=== PATIENT | female | born 1940 | race Native Hawaiian/Other Pacific Islander ===

== ENCOUNTER 2016-07-07 14:21 | Inpatient (IN) | payer MEDICARE ==
[~2016-07-07] VITALS: Ht 160 cm; Wt 118.6 kg
[2016-07-07 14:35] VITALS: BP 174/115; TEMP 97.8
[2016-07-07 15:35] LABS: PLATELET COUNT 384 K/uL (152-353)
[2016-07-07 15:48] LABS: POTASSIUM 4.2 mmol/L (3.6-5.2)
[2016-07-07 17:38] VITALS: BP 150/97
[2016-07-07 18:32] VITALS: BP 136/109; TEMP 98.4; Ht 160 cm; Wt 118.6 kg
[2016-07-07 20:00] VITALS: BP 157/84; TEMP 97.7
[2016-07-07 23:57] VITALS: BP 147/84; TEMP 98.1
[2016-07-08 03:09] LABS: PLATELET COUNT 330 K/uL (152-353)
[2016-07-08 03:29] LABS: POTASSIUM 4.4 mmol/L (3.6-5.2); SODIUM 133 mmol/L (136-145)
[2016-07-08 04:00] VITALS: BP 148/86; TEMP 98
[2016-07-08 08:00] VITALS: BP 160/97; TEMP 98.1
--- NOTE | 2016-07-08 08:32 | NUR ---
BS RECHECKED AFTER 10 UNITS PER SPECIAL DELIVERY CLERK. BS 200 AT THIS TIME. PT NPO. WILL MONITOR.
[2016-07-08 08:40] LABS: POTASSIUM 4.4 mmol/L (3.6-5.2); SODIUM 134 mmol/L (136-145)
--- NOTE | 2016-07-08 11:55 | NUR ---
MED LIST OBTAINED FROM [facility] OFFICE. ATTEMPTED TO GO OVER HOME MEDS WITH PT AND GRANDDAUGHTER. PT STATES SHE DOES NOT KNOW NAMES OF HOME MEDS OR WHAT THEY ARE FOR. GRANDDAUGHTER STATES SHE TOOK PT OFF OF SOME MEDS DUE TO "COMMERCIAL SHE SAW" GRANDDAUGHTER STATES SHE DOES NOT KNOW MEDS NAMES AND CAN NOT GO HOME TO OBTAIN MEDS OR LIST. YOSELIN GUSMAN INFORMED.
[2016-07-08 12:00] VITALS: BP 167/98; TEMP 98
[2016-07-08 16:00] VITALS: BP 143/81; TEMP 97.8
[2016-07-08] MEDS ORDERED: NEURONTIN800 MG PO (17:22)
[2016-07-08] MEDS ORDERED: ALAVERT10 M2 PO (17:23)
[2016-07-08] MEDS ORDERED: TRAM50TA PO (17:24)
[2016-07-08] MEDS ORDERED: CELE100C2 PO (17:26)
[2016-07-08] MEDS ORDERED: CLON0.5T36 PO (17:26)
[2016-07-08] MEDS ORDERED: DILTIAZEM HCL360 M1 PO (17:27)
[2016-07-08] MEDS ORDERED: CORRECTOL100 MG PO (17:28)
[2016-07-08] MEDS ORDERED: [UNRECOGNIZED DRUG - OTHER] PO (17:30)
[2016-07-08] MEDS ORDERED: FERROUS SULF325 M1 PO (17:31)
[2016-07-08] MEDS ORDERED: ACETAZOLAMID125 MG PO (17:32)
[2016-07-08] MEDS ORDERED: CITALOPRAM40 MG PO (17:33)
[2016-07-08] MEDS ORDERED: FURO40TA93 PO (17:33)
[2016-07-08] MEDS ORDERED: CARBTAB13 PO (17:34)
[2016-07-08] MEDS ORDERED: UNITH DIRECT175 MCG PO (17:34)
[2016-07-08 20:00] VITALS: BP 137/63; TEMP 98.3
[2016-07-09 01:26] VITALS: BP 139/88; TEMP 98.2
[2016-07-09 04:00] VITALS: BP 158/93; TEMP 97.6
--- NOTE | 2016-07-09 05:10 | NUR ---
07/09/16 2242 BLOOD SUGAR 9 UNITS.CC 07/09/16 0045 BLOOD SUGAR CHECKED 128. SNACK PROVIDED AT [email or web address]
[2016-07-09 08:00] VITALS: BP 148/80; TEMP 98.6
[2016-07-09 12:00] VITALS: BP 153/96; TEMP 97.6
[2016-07-09 12:38] LABS: PLATELET COUNT 311 K/uL (152-353)
[2016-07-09 13:01] LABS: POTASSIUM 4.2 mmol/L (3.6-5.2); SODIUM 138 mmol/L (136-145)
[2016-07-09 16:00] VITALS: BP 157/71; TEMP 98
[2016-07-09 20:00] VITALS: BP 161/104; TEMP 99
[2016-07-10] VITALS: BP 147/87; TEMP 98.3
[2016-07-10 04:00] VITALS: BP 132/74; TEMP 98.1
[2016-07-10 08:00] VITALS: BP 142/79; TEMP 98.4
[2016-07-10 12:00] VITALS: BP 152/95; TEMP 98.2
[2016-07-10 16:00] VITALS: BP 169/79; TEMP 97.8
[2016-07-10 20:00] VITALS: BP 177/91; TEMP 97.6
[2016-07-11] VITALS: BP 169/77; TEMP 98.7
[2016-07-11 04:00] VITALS: BP 141/61; TEMP 98.1
[2016-07-11 08:00] VITALS: BP 146/73; TEMP 98
== END 2016-07-11 15:41 | disposition home or self-care (01) | DRG 389 ==
LOC: ED 14:21 → MED/SURG 17:37
PROVIDERS: Emergency Medicine; ADMIT Family Medicine
DX: K56.69 Other intestinal obstruction (principal); N39.0 Urinary tract infection, site not specified; E11.65 Type 2 diabetes mellitus with hyperglycemia; Z79.4 Long term (current) use of insulin; R11.0 Nausea; R10.84 Generalized abdominal pain; B96.89 Other specified bacterial agents as the cause of diseases classified elsewhere; S00.83XA Contusion of other part of head, initial encounter; I10 Essential (primary) hypertension; G20 Parkinson's disease; I25.2 Old myocardial infarction; Z86.73 Personal history of transient ischemic attack (TIA), and cerebral infarction without residual deficits; E03.8 Other specified hypothyroidism; N18.3 Chronic kidney disease, stage 3 (moderate); J44.9 Chronic obstructive pulmonary disease, unspecified
CPT/HCPCS: 80053; 81000; 82550; 82948; 83735; 84484; 85027; 85610; 87077; 87086; 87088; 87186; 96365; 96366; 96367; 96372; 96374; 96375; 99284; J0744; J1200; J2175; J2550; J2765

== ENCOUNTER 2016-07-22 16:01 | Outpatient (CLI) | payer OTHER ==
[~2016-07-22 16:01] MED LIST: ACETAZOLAMID125 MG PO; ALAVERT10 M2 PO; CARBTAB13 PO; CELE100C2 PO; CITALOPRAM40 MG PO; CLON0.5T36 PO; CORRECTOL100 MG PO; DILTIAZEM HCL360 M1 PO; FERROUS SULF325 M1 PO; FURO40TA93 PO; NEURONTIN800 MG PO; TRAM50TA PO; UNITH DIRECT175 MCG PO; [UNRECOGNIZED DRUG - OTHER] PO
== END 2016-07-22 17:01 | disposition home or self-care (01) ==
LOC: LAB 16:01
DX: N39.0 Urinary tract infection, site not specified (principal)
CPT/HCPCS: 87077; 87086; 87088; 87186

== ENCOUNTER 2016-07-30 13:10 | Inpatient (IN) | payer OTHER ==
[~2016-07-30] VITALS: Ht 160 cm; Wt 118.6 kg
[2016-07-30 13:30] VITALS: BP 164/90; TEMP 97.6
[2016-07-30 14:32] LABS: PLATELET COUNT 446 K/uL (152-353)
[2016-07-30 14:39] LABS: POTASSIUM 4.3 mmol/L (3.6-5.2); SODIUM 135 mmol/L (136-145)
[2016-07-30 14:49] LABS: PARTIAL THROMBOPLASTIN TIME 25.9 SECONDS (24.5-33.6)
[2016-07-30 18:39] VITALS: BP 136/88
[2016-07-30 18:40] VITALS: BP 142/96
[2016-07-30 21:00] VITALS: BP 150/89
[2016-07-30 23:31] VITALS: BP 159/90; TEMP 98; Ht 160 cm; Wt 118.6 kg
[2016-07-31] VITALS (15 sets, daily range): BP systolic 130–170; BP diastolic 54–103; TEMP 97.6–98.6
[2016-07-31 03:12] LABS: PARTIAL THROMBOPLASTIN TIME 23.7 SECONDS (24.5-33.6)
[2016-07-31 09:52] LABS: POTASSIUM 4.9 mmol/L (3.6-5.2)
[2016-07-31 09:59] LABS: PLATELET COUNT 443 K/uL (152-353)
[2016-07-31 10:37] LABS: PARTIAL THROMBOPLASTIN TIME 87.5 SECONDS (24.5-33.6)
[2016-07-31 16:50] LABS: PARTIAL THROMBOPLASTIN TIME 94.4 SECONDS (24.5-33.6)
[2016-08-01] VITALS (15 sets, daily range): BP systolic 136–175; BP diastolic 75–105; TEMP 97–98.4
[2016-08-01 08:34] LABS: PLATELET COUNT 437 K/uL (152-353)
[2016-08-01 09:12] LABS: POTASSIUM 3.9 mmol/L (3.6-5.2)
[2016-08-01 12:17] LABS: PARTIAL THROMBOPLASTIN TIME 20.5 SECONDS (24.5-33.6)
[2016-08-02] VITALS (19 sets, daily range): BP systolic 134–167; BP diastolic 69–99; TEMP 97.5–99
[2016-08-02 05:50] LABS: PLATELET COUNT 416 K/uL (152-353)
[2016-08-02 06:37] LABS: POTASSIUM 4.7 mmol/L (3.6-5.2)
[2016-08-03] VITALS (16 sets, daily range): BP systolic 119–158; BP diastolic 60–98; TEMP 97.5–98.3
[2016-08-03 06:32] LABS: PLATELET COUNT 342 K/uL (152-353)
[2016-08-03 06:46] LABS: POTASSIUM 4.6 mmol/L (3.6-5.2)
[2016-08-04] VITALS: BP 164/99; TEMP 98
[2016-08-04 04:00] VITALS: BP 164/100; TEMP 97.9
[2016-08-04 05:52] LABS: PLATELET COUNT 304 K/uL (152-353)
[2016-08-04 06:17] LABS: POTASSIUM 4.6 mmol/L (3.6-5.2)
[2016-08-04 08:00] VITALS: BP 165/73; TEMP 98.2
[2016-08-04 12:00] VITALS: BP 170/98; TEMP 98
[2016-08-04 16:00] VITALS: BP 161/81; TEMP 99.8
[2016-08-04 20:00] VITALS: BP 157/95; TEMP 98
[2016-08-05] VITALS: BP 145/72; TEMP 98.1
[2016-08-05 04:00] VITALS: BP 157/88; TEMP 98
[2016-08-05 06:20] LABS: PLATELET COUNT 283 K/uL (152-353)
[2016-08-05 08:00] VITALS: BP 120/89; TEMP 97.4
[2016-08-05 11:34] VITALS: BP 139/93; TEMP 98.6
[2016-08-05 16:00] VITALS: BP 145/82; TEMP 98
[2016-08-05 20:00] VITALS: BP 139/91; TEMP 98.4
[2016-08-06] VITALS: BP 145/86; TEMP 98.4
[2016-08-06 04:00] VITALS: BP 110/67; TEMP 97.6
[2016-08-06 08:00] VITALS: BP 161/68; TEMP 97.6
[2016-08-06 12:00] VITALS: BP 159/75; TEMP 97.8
[2016-08-06 16:00] VITALS: BP 136/84; TEMP 98.3
[2016-08-06 20:27] VITALS: BP 118/91; TEMP 97.7
[2016-08-07 00:14] VITALS: BP 132/72; TEMP 97.9
[2016-08-07 04:00] VITALS: BP 142/92; TEMP 97.7
[2016-08-07 05:39] LABS: PLATELET COUNT 187 K/uL (152-353)
[2016-08-07 05:46] LABS: POTASSIUM 4.7 mmol/L (3.6-5.2); SODIUM 137 mmol/L (136-145)
[2016-08-07 07:55] VITALS: BP 139/90; TEMP 97.4
[2016-08-07 12:00] VITALS: BP 128/76; TEMP 98
[2016-08-07 16:00] VITALS: BP 152/83; TEMP 98.6
[2016-08-07 20:00] VITALS: BP 121/58; TEMP 97.6
[2016-08-08] VITALS (17 sets, daily range): BP systolic 39–141; BP diastolic 28–94; TEMP 97.4–97.8
[2016-08-08 05:23] LABS: PLATELET COUNT 220 K/uL (152-353)
[2016-08-08 05:46] LABS: POTASSIUM 4.2 mmol/L (3.6-5.2); SODIUM 138 mmol/L (136-145)
[2016-08-08 15:01] LABS: PLATELET COUNT 202 K/uL (152-353)
[2016-08-08 15:22] LABS: POTASSIUM 4.8 mmol/L (3.6-5.2)
[2016-08-08 15:54] LABS: PARTIAL THROMBOPLASTIN TIME 21.7 SECONDS (24.5-33.6)
== END 2016-08-08 20:45 | disposition expired | DRG 208 ==
LOC: ED 13:10 → MED/SURG 20:40 → ICU 07-31 14:50 → MED/SURG 08-03 17:38 → ICU 08-08 14:05
PROVIDERS: Emergency Medicine; ADMIT Emergency Medicine
PROC: 5A1935Z Respiratory Ventilation, Less than 24 Consecutive Hours (ICD-10-PCS; principal; 2016-08-08)
PROC: 0BH17EZ Insertion of Endotracheal Airway into Trachea, Via Natural or Artificial Opening (ICD-10-PCS; 2016-08-08)
PROC: 05H533Z Insertion of Infusion Device into Right Subclavian Vein, Percutaneous Approach (ICD-10-PCS; 2016-08-08)
DX: J44.1 Chronic obstructive pulmonary disease with (acute) exacerbation (principal); E11.00 Type 2 diabetes mellitus with hyperosmolarity without nonketotic hyperglycemic-hyperosmolar coma (NKHHC); B37.89 Other sites of candidiasis; R09.02 Hypoxemia; I46.9 Cardiac arrest, cause unspecified
CPT/HCPCS: 31500; 36415; 36591; 36600; 80048; 80053; 80307; 81000; 81002; 82550; 82805; 82947; 82948; 82962; 83735; 83880; 84484; 85027; 85379; 85610; 85730; 87040; 87077; 87086; 87088; 87186; 87804; 92950; 93005; 94002; 94664; 94760; 96365; 96372; 96375; 99284; A9540; A9567; C1768; G0479; J0171; J0282; J0461; J0500; J1265; J1450; J1644; J1650; J1815; J2250; J2405; J2690; J2930; J3475; J3490